=== PATIENT | female | born 1995 | race Caucasian/White ===

== ENCOUNTER 2021-08-26 03:52 | Emergency (ER) | payer SELFPAY ==
[2021-08-26 03:58] VITALS: TEMP 99.4
[2021-08-26] MEDS ORDERED: SODIUM CHLORIDE 0.9% 500 ML 500 ML IV STA (04:21)
--- NOTE | 2021-08-26 04:25 | ED ---
Female Urogenital HPI - General Chief complaint: Vaginal Bleeding Stated complaint: Miscarriage Time Seen by Provider: 08/26/21 04:20 Source: patient Mode of arrival: ambulatory Limitations: physical limitation - History of Present Illness Initial comments: This patient is a 25-year-old woman, , who states she is approximately 10 weeks and presents with complaint of vaginal bleeding. Patient had a trace of spotting starting 2 days ago. She states that it continued intermittently until yesterday in the afternoon. She states that she did have intercourse and then following that she had some small clots and then tonight she started passing large clots. Patient also has some suprapubic cramping pain tonight. She denies any symptoms of anemia, no lightheadedness, dyspnea, diaphoresis, palpitations. MD Complaint: vaginal bleeding Onset/Timin -: days(s) Location: suprapubic Radiation: non-radiating Severity: moderate Quality: cramping Consistency: constant Improves with: none Worsens with: none Last Menstrual Period: 06/19/21 Patient : Yes Number of weeks : 10 Associated Symptoms: vaginal bleeding - Related Data Sexually active: Yes : 2 Para: 1 A: 0 Allergies Allergy/AdvReac Type Severity Reaction Status Date / Time No Known Allergies Allergy Verified 08/26/21 03:58 Review of Systems ROS Statement: Those systems with pertinent positive or pertinent negative responses have been documented in the HPI. ROS Other: All systems not noted in ROS Statement are negative. Constitutional: Denies: fever, chills Respiratory: Denies: cough, dyspnea Cardiovascular: Denies: chest pain, palpitations Gastrointestinal: Reports: as per HPI, abdominal pain. Denies: vomiting, diarrhea, melena, hematochezia Genitourinary: Reports: abnormal menses. Denies: urgency, dysuria, frequency, hematuria Musculoskeletal: Denies: back pain Skin: Denies: rash Neurological: Denies: headache, weakness, numbness Hematological/Lymphatic: Denies: easy bleeding Past Medical History Past Medical History: No Reported History History of Any Multi-Drug Resistant Organisms: None Reported Past Surgical History: Orthopedic Surgery Additional Past Surgical History / Comment(s): knee right Past Psychological History: No Psychological Hx Reported Smoking Status: Never smoker Past Alcohol Use History: None Reported Past Drug Use History: None Reported General Exam Limitations: physical limitation General appearance: alert, in no apparent distress Head exam: Present: atraumatic, normocephalic Eye exam: Present: normal appearance. Absent: scleral icterus, conjunctival injection Neck exam: Present: normal inspection Respiratory exam: Present: normal lung sounds bilaterally. Absent: respiratory distress, wheezes, rales, rhonchi, stridor Cardiovascular Exam: Present: regular rate, normal rhythm, normal heart sounds. Absent: systolic murmur, diastolic murmur, rubs, gallop GI/Abdominal exam: Present: soft. Absent: distended, tenderness, guarding, rebound, rigid, mass External exam: Present: normal external exam Speculum exam: Present: vaginal bleeding Extremities exam: Present: normal inspection, normal capillary refill. Absent: pedal edema, calf tenderness Back exam: Present: normal inspection. Absent: CVA tenderness (R), CVA tenderness (L) Neurological exam: Present: alert Skin exam: Present: warm, dry, intact, normal color. Absent: rash Course Vital Signs 08/26/21 08/26/21 08/26/21 03:53 04:20 06:00 Temperature 99.4 F Pulse Rate 129 H 85 76 Respiratory 18 20 15 Rate Blood Pressure 139/76 131/89 110/79 O2 Sat by Pulse 99 100 98 Oximetry Medical Decision Making - Lab Data Result diagrams: 08/26/21 04:23 08/26/21 04:23 Lab Results 08/26/21 08/26/21 08/26/21 Range/Units 04:23 04:23 04:23 WBC 9.8 (3.8-10.6) k/uL RBC 4.90 (3.80-5.40) m/uL Hgb 13.4 (11.4-16.0) gm/dL Hct 42.0 (34.0-46.0) % MCV 85.6 (80.0-100.0) fL MCH 27.4 (25.0-35.0) pg MCHC 32.0 (31.0-37.0) g/dL RDW 13.4 (11.5-15.5) % Plt Count 188 (150-450) k/uL MPV 9.4 Neutrophils % 63 % Lymphocytes % 28 % Monocytes % 4 % Eosinophils % 2 % Basophils % 1 % Neutrophils # 6.2 (1.3-7.7) k/uL Lymphocytes # 2.7 (1.0-4.8) k/uL Monocytes # 0.4 (0-1.0) k/uL Eosinophils # 0.2 (0-0.7) k/uL Basophils # 0.0 (0-0.2) k/uL Sodium 138 (137-145) mmol/L Potassium 4.1 (3.5-5.1) mmol/L Chloride 103 (98-107) mmol/L Carbon Dioxide 21 L (22-30) mmol/L Anion Gap 14 mmol/L BUN 12 (7-17) mg/dL Creatinine 0.63 (0.52-1.04) mg/dL Est GFR (CKD-EPI)AfAm >90 (>60 ml/min/1.73 sqM) Est GFR (CKD-EPI)NonAf >90 (>60 ml/min/1.73 sqM) Glucose 115 H (74-99) mg/dL Plasma Lactic Acid Juan 1.4 (0.7-2.0) mmol/L Calcium 9.3 (8.4-10.2) mg/dL Total Bilirubin 0.4 (0.2-1.3) mg/dL AST 19 (14-36) U/L ALT 14 (4-34) U/L Alkaline Phosphatase 76 (38-126) U/L Total Protein 7.2 (6.3-8.2) g/dL Albumin 4.1 (3.5-5.0) g/dL HCG, Quant 98497.7 mIU/mL Blood Type Blood Type Recheck Bld Type Recheck Status 08/26/21 Range/Units 04:23 WBC (3.8-10.6) k/uL RBC (3.80-5.40) m/uL Hgb (11.4-16.0) gm/dL Hct (34.0-46.0) % MCV (80.0-100.0) fL MCH (25.0-35.0) pg MCHC (31.0-37.0) g/dL RDW (11.5-15.5) % Plt Count (150-450) k/uL MPV Neutrophils % % Lymphocytes % % Monocytes % % Eosinophils % % Basophils % % Neutrophils # (1.3-7.7) k/uL Lymphocytes # (1.0-4.8) k/uL Monocytes # (0-1.0) k/uL Eosinophils # (0-0.7) k/uL Basophils # (0-0.2) k/uL Sodium (137-145) mmol/L Potassium (3.5-5.1) mmol/L Chloride (98-107) mmol/L Carbon Dioxide (22-30) mmol/L Anion Gap mmol/L BUN (7-17) mg/dL Creatinine (0.52-1.04) mg/dL Est GFR (CKD-EPI)AfAm (>60 ml/min/1.73 sqM) Est GFR (CKD-EPI)NonAf (>60 ml/min/1.73 sqM) Glucose (74-99) mg/dL Plasma Lactic Acid Juan (0.7-2.0) mmol/L Calcium (8.4-10.2) mg/dL Total Bilirubin (0.2-1.3) mg/dL AST (14-36) U/L ALT (4-34) U/L Alkaline Phosphatase (38-126) U/L Total Protein (6.3-8.2) g/dL Albumin (3.5-5.0) g/dL HCG, Quant mIU/mL Blood Type A Positive Blood Type Recheck No Previous Record Bld Type Recheck Status ABR ONLY Disposition Clinical Impression: Miscarriage Disposition: HOME SELF-CARE Condition: Good Instructions (If sedation given, give patient instructions): Miscarriage (ED) Is patient prescribed a controlled substance at d/c from ED?: No Referrals: None,Stated [Primary Care Provider] - 1-2 days Opal Gaitan DO [Doctor of Osteopathic Medicine] - 1-2 days
[2021-08-26 04:47] LABS: Basophils % (A) 1 %; Eosinophils # (A) 0.2 k/uL (0-0.7); Eosinophils % (A) 2 %; HGB 13.4 gm/dL (11.4-16.0); Lymphocytes # (A) 2.7 k/uL (1.0-4.8); Lymphocytes % (A) 28 %; MCH 27.4 pg (25.0-35.0); MCV 85.6 fL (80.0-100.0); Mean Platelet Volume 9.4; Monocytes # (A) 0.4 k/uL (0-1.0); Monocytes % (A) 4 %; Neutrophils # (A) 6.2 k/uL (1.3-7.7); Neutrophils % (A) 63 %; Platelet Count 188 k/uL (150-450); RDW 13.4 % (11.5-15.5); WBC 9.8 k/uL (3.8-10.6)
[2021-08-26 05:00] LABS: ALT 14 U/L (4-34); AST 19 U/L (14-36); African American GFR (CKD) >90 (>60 ml/min/1.73 sqM); Albumin 4.1 g/dL (3.5-5.0); Alkaline Phosphatase 76 U/L (38-126); Anion Gap 14 mmol/L; Blood Urea Nitrogen 12 mg/dL (7-17); Calcium 9.3 mg/dL (8.4-10.2); Carbon Dioxide 21 mmol/L (22-30); Chloride 103 mmol/L (98-107); Glucose 115 mg/dL (74-99); Non-African American GFR(CKD) >90 (>60 ml/min/1.73 sqM); Potassium 4.1 mmol/L (3.5-5.1); Sodium 138 mmol/L (137-145); Total Bilirubin 0.4 mg/dL (0.2-1.3); Total Protein 7.2 g/dL (6.3-8.2)
[2021-08-26 05:16] LABS: HCG,Quantitative Serum 10378.7 mIU/mL
[2021-08-26] MEDS ORDERED: ACETAMINOPHEN TAB 325 MG TAB PO STA (06:47)
--- NOTE | 2021-08-26 07:42 | US ---
EXAMINATION TYPE: Transabdominal DATE OF EXAM: 08/26/2021 7:20 AM COMPARISON: NONE CLINICAL HISTORY: suspect miscarriage. No prior ultrasound. Heavy bleeding since last night. EXAM PERFORMED: Transabdominal (TA) EXAM MEASUREMENTS: GESTATIONAL AGE / DATING Physician Established: Not yet established Dates by LMP: (9 weeks/5 days) EDC: 03/26/2022 Dates by First Scan: No previous this is first scan Dates by Current Scan for: No IUP seen at this time MATERNAL ANATOMY Uterus: 9.5 x 6.6 x 5.3 cm Right Ovary: 2.6 x 2.2 x 2.1 cm Left Ovary: 2.7 x 1.6 x 1.7 cm Post CDS / Adnexa: no Presence of free fluid: no Presence of corpus luteal cyst: right ovary- 1.5 x 1.8 x 1.3 cm GESTATION / SURVEY CRL: Not seen MSD: Not seen IUP: No IUP seen at this time Date of LMP: 06/19/2021, Beta HcG (if available): 09403.7 No GS, YS or CRL visualized at this time. Endometrium = 0.6 cm IMPRESSION: 1. No intrauterine gestation identified at this time. Correlation with beta hCG and follow-up ultraso und is recommended. 2. Small complex cyst may be present on the right ovary.
[2021-08-26 08:21] VITALS: BP 127/80; PULSE 83; RESP 18
== END 2021-08-26 08:21 | disposition home or self-care (01) ==
LOC: EC 03:52
DX: O03.9 Complete or unspecified spontaneous abortion without complication (principal)
CPT/HCPCS: 76801; 80053; 83605; 84702; 85025; 86900; 86901; 96360; 96361; 99284